=== PATIENT | female | born 1965 | race Caucasian/White ===

== ENCOUNTER 2018-04-11 19:39 | Emergency (ER) | payer MEDICAID ==
[~2018-04-11] VITALS: Ht 170.2 cm; Wt 99.2 kg
[~2018-04-11 19:39] MED LIST: ONDA8TAB9 PO; PANT-47 PO; POLY119P2 PO
[2018-04-11] MEDS ORDERED: LORazepam 1 MG tablet PO ONE (20:50)
[2018-04-11] MEDS ORDERED: albuterol 2.5 MG/3 ML nebule NEB ONE (20:50)
[2018-04-11] MEDS ORDERED: aspirin 325mg tablet PO ONE (20:50)
[2018-04-11] MEDS ORDERED: diphenhydrAMINE 25mg capsule PO ONE (21:40)
[2018-04-11] MEDS ORDERED: predniSONE 20 mg tablet PO ONE (21:40)
[2018-04-11] MEDS ORDERED: PRED20TA PO (21:41)
[2018-04-11 22:00] VITALS: BP 111/65
== END 2018-04-11 22:01 | disposition home or self-care (01) ==
LOC: ER 19:40
DX: J40 Bronchitis, not specified as acute or chronic (principal); E89.0 Postprocedural hypothyroidism; F17.200 Nicotine dependence, unspecified, uncomplicated; Z79.899 Other long term (current) drug therapy; Z90.710 Acquired absence of both cervix and uterus; Z98.51 Tubal ligation status; Z90.89 Acquired absence of other organs
CPT/HCPCS: 71045; 93005; 94640; 94760; 99284; J7512; Q0163

== ENCOUNTER 2019-08-25 23:58 | Emergency (ER) | payer MEDICAID ==
[~2019-08-25] VITALS: Ht 170.2 cm; Wt 113.2 kg
[2019-08-26] MEDS ORDERED: ibuprofen tablet 400 MG TABLET PO STA (00:04)
[2019-08-26] MEDS ORDERED: ketorolac tromethamine 15mg/ml inj. IM ONE (02:45)
[2019-08-26] MEDS ORDERED: dexamethasone 4mg tablet PO ONE (02:45)
[2019-08-26] MEDS ORDERED: diazepam 5mg tablet PO ONE (02:55)
[2019-08-26] MEDS ORDERED: METH-360 PO (03:08)
[2019-08-26] MEDS ORDERED: DIAZ-351 PO (03:08)
[2019-08-26] MEDS ORDERED: PRED20TA PO (03:08)
--- NOTE | 2019-08-26 04:01 | NUR ---
PATIENT IN BED EYES CLOSED RR EVEN UN LABORED NO OBSERVABLE S/S OF ACUTE STRESS AT THIS TIME WILL CONTINUE TO MONITOR
--- NOTE | 2019-08-26 06:16 | NUR ---
SBAR TO AMBER FAYE NO QUESTIONS OR CONCERNS AFTER ASSUMING CARE
[2019-08-26 07:12] VITALS: BP 149/97
== END 2019-08-26 10:00 | disposition home or self-care (01) ==
LOC: ER 23:58
DX: M54.42 Lumbago with sciatica, left side (principal); M54.41 Lumbago with sciatica, right side; F41.9 Anxiety disorder, unspecified; F32.9 Major depressive disorder, single episode, unspecified; Z90.710 Acquired absence of both cervix and uterus; Z98.51 Tubal ligation status; Z98.890 Other specified postprocedural states; Z72.89 Other problems related to lifestyle; Z79.899 Other long term (current) drug therapy
CPT/HCPCS: 72148; 96372; 99285; J1885

== ENCOUNTER 2019-12-08 09:37 | Emergency (ER) | payer MEDICAID ==
[~2019-12-08] VITALS: Ht 167.6 cm; Wt 113.6 kg
[~2019-12-08 09:37] MED LIST changes: +DIAZ-351 PO; +METH-360 PO
[2019-12-08] MEDS ORDERED: methylPREDNISolone sod succ 125mg/2ml vial IV ONE (10:05)
[2019-12-08] MEDS ORDERED: ipratropium/albuterol 3ml nebule NEB ONE (10:05)
[2019-12-08] MEDS ORDERED: normal saline 1000ML IV soln IVB ONE (10:05)
[2019-12-08] MEDS ORDERED: LORazepam 2 mg/ml vial IV ONE (10:05)
[2019-12-08 10:46] LABS: BASOPHILS # (AUTO) 0.1 X10'3 (0-0.2); BASOPHILS % (AUTO) 0.9 % (0-1); EOSINOPHILS # (AUTO) 0.2 X10'3 (0-0.9); EOSINOPHILS % (AUTO) 2.4 % (0-6); HEMATOCRIT 43.5 % (35.0-45.0); HEMOGLOBIN 14.7 g/dl (12.0-16.0); LYMPHOCYTES % (AUTO) 38.1 % (21-51); MEAN CORPUSCULAR HEMOGLOBIN 30.6 PG (27.0-31.0); MEAN CORPUSCULAR HGB CONC 33.9 g/dL (33.0-36.5); MEAN CORPUSCULAR VOLUME 90.5 FL (78-98); MEAN PLATELET VOLUME 9.5 FL (7.4-10.4); MONOCYTES # (AUTO) 0.7 X10'3 (0-0.9); MONOCYTES % (AUTO) 8.6 % (2-12); PLATELET COUNT 270 X10'3 (140-440); RED BLOOD COUNT 4.81 X10'6 (4.20-5.60); RED CELL DISTRIBUTION WIDTH 13.8 % (11.5-14.5); WHITE BLOOD COUNT 7.9 X10'3 (4.5-11.0)
[2019-12-08 11:19] LABS: ALANINE AMINOTRANSFERASE 30 U/L (12-78); ALBUMIN 3.4 G/DL (3.4-5.0); ALBUMIN/GLOBULIN RATIO 0.9 (1.1-1.5); ALKALINE PHOSPHATASE 137 IU/L (46-116); ANION GAP 12 (8-16); ASPARTATE AMINO TRANSFERASE 22 U/L (10-37); BILIRUBIN,TOTAL 0.5 MG/DL (0.1-1.0); BLOOD UREA NITROGEN 8 MG/DL (7-18); BUN/CREATININE RATIO 9.1 (6.6-38.0); CALCIUM 8.9 MG/DL (8.5-10.1); CHLORIDE 107 MMOL/L (99-107); CREATININE 0.88 MG/DL (0.40-0.90); GLUCOSE 96 MG/DL (70-104); POTASSIUM 4.3 MMOL/L (3.5-5.1); SODIUM 144 MMOL/L (135-145); TOTAL CARBON DIOXIDE 24.7 MMOL/L (24-32); TOTAL PROTEIN 7.1 G/DL (6.4-8.2); eGFR 67 ML/MIN
[2019-12-08 12:06] VITALS: BP 135/98
== END 2019-12-08 12:18 | disposition home or self-care (01) ==
LOC: ER 09:38
DX: F41.0 Panic disorder [episodic paroxysmal anxiety] (principal); J44.9 Chronic obstructive pulmonary disease, unspecified; F32.9 Major depressive disorder, single episode, unspecified; Z90.710 Acquired absence of both cervix and uterus; Z98.51 Tubal ligation status; Z98.890 Other specified postprocedural states; Z79.899 Other long term (current) drug therapy
CPT/HCPCS: 36415; 71045; 80053; 84484; 85025; 93005; 94640; 96374; 96375; 99285; J2060; J2930; J7030; 94760

== ENCOUNTER 2020-02-03 14:42 | Emergency (ER) | payer MEDICAID ==
[~2020-02-03] VITALS: Ht 167.6 cm; Wt 111.8 kg
[2020-02-03 16:28] LABS: BASOPHILS # (AUTO) 0.1 X10'3 (0-0.2); EOSINOPHILS # (AUTO) 0.3 X10'3 (0-0.9); HEMOGLOBIN 15.3 g/dl (12.0-16.0); LYMPHOCYTES # (AUTO) 2.8 X10'3 (1.1-4.8); MEAN PLATELET VOLUME 9.4 FL (7.4-10.4); MONOCYTES # (AUTO) 0.6 X10'3 (0-0.9); MONOCYTES % (AUTO) 7.7 % (2-12); NEUTROPHILS # (AUTO) 3.8 X10'3 (1.8-7.7); WHITE BLOOD COUNT 7.5 X10'3 (4.5-11.0)
[2020-02-03 16:30] LABS: BASOPHILS % (AUTO) 1.3 % (0-1); EOSINOPHILS % (AUTO) 3.8 % (0-6); HEMATOCRIT 45.5 % (35.0-45.0); MEAN CORPUSCULAR HEMOGLOBIN 30.8 PG (27.0-31.0); MEAN CORPUSCULAR HGB CONC 33.7 g/dL (33.0-36.5); MEAN CORPUSCULAR VOLUME 91.5 FL (78-98); NEUTROPHILS % (AUTO) 50.2 % (42-75); PLATELET COUNT 287 X10'3 (140-440); RED BLOOD COUNT 4.98 X10'6 (4.20-5.60); RED CELL DISTRIBUTION WIDTH 13.8 % (11.5-14.5)
[2020-02-03 16:43] LABS: ALANINE AMINOTRANSFERASE 35 U/L (12-78); ALBUMIN 3.7 G/DL (3.4-5.0); ALBUMIN/GLOBULIN RATIO 0.9 (1.1-1.5); ALKALINE PHOSPHATASE 144 IU/L (46-116); ANION GAP 9 (8-16); ASPARTATE AMINO TRANSFERASE 20 U/L (10-37); BILIRUBIN,TOTAL 0.4 MG/DL (0.1-1.0); BLOOD UREA NITROGEN 10 MG/DL (7-18); BUN/CREATININE RATIO 10.1 (6.6-38.0); CALCIUM 9.1 MG/DL (8.5-10.1); CHLORIDE 105 MMOL/L (99-107); CREATININE 0.99 MG/DL (0.40-0.90); GLUCOSE 116 MG/DL (70-104); POTASSIUM 3.9 MMOL/L (3.5-5.1); SODIUM 141 MMOL/L (135-145); TOTAL CARBON DIOXIDE 27.5 MMOL/L (24-32); TOTAL PROTEIN 7.6 G/DL (6.4-8.2); eGFR 59 ML/MIN
[2020-02-03 17:44] VITALS: BP 109/77
== END 2020-02-03 17:30 | disposition home or self-care (01) ==
LOC: ER 14:42
DX: I10 Essential (primary) hypertension (principal); R06.02 Shortness of breath; R05 Cough; R07.89 Other chest pain; R11.0 Nausea; F41.9 Anxiety disorder, unspecified; F32.9 Major depressive disorder, single episode, unspecified; Z90.710 Acquired absence of both cervix and uterus; Z98.51 Tubal ligation status; Z98.890 Other specified postprocedural states; Z72.89 Other problems related to lifestyle; Z79.899 Other long term (current) drug therapy
CPT/HCPCS: 36415; 71045; 80053; 84484; 85025; 93005; 99285

== ENCOUNTER 2020-07-06 18:00 | Emergency (ER) | payer MEDICAID ==
[~2020-07-06] VITALS: Ht 167.6 cm; Wt 113.6 kg
--- NOTE | 2020-07-06 20:54 | NUR ---
Her pitbull was attacking her 16 y/o dog and she picked him up and pulled him away and then sat on him 2 days ago and has had an increase in pain to her left lumbar/buttock area to where she can barely move, sit, stand. Has gone to a chiropractor, but pain continues.
[2020-07-06] MEDS ORDERED: dexamethasone sod phosphate 10mg/ml inj IV STA (21:08)
[2020-07-06] MEDS ORDERED: acetaminophen 325mg tablet PO ONE (21:20)
[2020-07-06] MEDS ORDERED: morphine 4 MG/ML inj SYRINge IV ONE (21:20)
[2020-07-06] MEDS ORDERED: LIDOcaine 5% patch TP ONE (21:20)
[2020-07-06] MEDS ORDERED: ketorolac trometh. 30mg/ml inj. IV ONE (21:20)
[2020-07-06] MEDS ORDERED: orphenadrine citrate 60mg/2ml inj. IM ONE (21:20)
[2020-07-06] MEDS ORDERED: gabapentin 400mg capsule PO ONE (21:45)
[2020-07-06] MEDS ORDERED: LORazepam 2 mg/ml vial IV ONE (21:45)
[2020-07-07] MEDS ORDERED: diazepam inj 5 MG/ML inj. IV ONE
[2020-07-07] MEDS ORDERED: METH-360 PO (00:01)
[2020-07-07 00:40] VITALS: BP 119/79
== END 2020-07-07 00:41 | disposition home or self-care (01) ==
LOC: ER 18:00
DX: S39.012A Strain of muscle, fascia and tendon of lower back, initial encounter (principal); R53.1 Weakness; M54.2 Cervicalgia; R20.0 Anesthesia of skin; I10 Essential (primary) hypertension; G89.29 Other chronic pain; F41.9 Anxiety disorder, unspecified; F32.9 Major depressive disorder, single episode, unspecified; Z90.710 Acquired absence of both cervix and uterus; Z98.51 Tubal ligation status; Z98.890 Other specified postprocedural states; Z72.89 Other problems related to lifestyle; Z79.899 Other long term (current) drug therapy; X58.XXXA Exposure to other specified factors, initial encounter; Y93.89 Activity, other specified; Y92.89 Other specified places as the place of occurrence of the external cause; Y99.8 Other external cause status
CPT/HCPCS: 96372; 96374; 96375; 99284; J1100; J1885; J2060; J2270; J2360; J3360

== ENCOUNTER 2021-04-05 07:45 | Emergency (ER) | payer MEDICAID ==
[~2021-04-05] VITALS: Ht 167.6 cm; Wt 117.0 kg
[2021-04-05] MEDS ORDERED: ondansetron/PF 4mg/2ml inj IV ONE (08:10)
[2021-04-05] MEDS ORDERED: morphine 4 MG/ML inj SYRINge IV ONE (08:10)
[2021-04-05] MEDS ORDERED: aspirin 325mg tablet PO ONE (08:10)
[2021-04-05 08:18] LABS: BASOPHILS # (AUTO) 0.1 X10'3 (0-0.2); BASOPHILS % (AUTO) 1.4 % (0-1); EOSINOPHILS # (AUTO) 0.3 X10'3 (0-0.9); EOSINOPHILS % (AUTO) 2.8 % (0-6); HEMATOCRIT 47.3 % (35.0-45.0); HEMOGLOBIN 16.5 g/dl (12.0-16.0); LYMPHOCYTES # (AUTO) 3.7 X10'3 (1.1-4.8); LYMPHOCYTES % (AUTO) 40.6 % (21-51); MEAN CORPUSCULAR HEMOGLOBIN 31.3 PG (27.0-31.0); MEAN CORPUSCULAR HGB CONC 34.8 g/dL (33.0-36.5); MEAN CORPUSCULAR VOLUME 89.9 FL (78-98); MEAN PLATELET VOLUME 9.5 FL (7.4-10.4); MONOCYTES # (AUTO) 0.8 X10'3 (0-0.9); MONOCYTES % (AUTO) 8.3 % (2-12); NEUTROPHILS # (AUTO) 4.3 X10'3 (1.8-7.7); NEUTROPHILS % (AUTO) 46.9 % (42-75); PLATELET COUNT 319 X10'3 (140-440); RED BLOOD COUNT 5.27 X10'6 (4.20-5.60); RED CELL DISTRIBUTION WIDTH 13.9 % (11.5-14.5); WHITE BLOOD COUNT 9.2 X10'3 (4.5-11.0)
[2021-04-05 08:33] LABS: ALANINE AMINOTRANSFERASE 60 U/L (12-78); ALBUMIN 3.8 G/DL (3.4-5.0); ALBUMIN/GLOBULIN RATIO 0.9 (1.1-1.5); ALKALINE PHOSPHATASE 185 IU/L (46-116); ANION GAP 11 (8-16); ASPARTATE AMINO TRANSFERASE 30 U/L (10-37); BILIRUBIN,TOTAL 0.5 MG/DL (0.1-1.0); BLOOD UREA NITROGEN 10 MG/DL (7-18); BUN/CREATININE RATIO 11.8 (6.6-38.0); CALCIUM 9.5 MG/DL (8.5-10.1); CHLORIDE 105 MMOL/L (99-107); CREATININE 0.85 MG/DL (0.40-0.90); GLUCOSE 101 MG/DL (70-104); POTASSIUM 4.2 MMOL/L (3.5-5.1); SODIUM 142 MMOL/L (135-145); TOTAL CARBON DIOXIDE 25.9 MMOL/L (24-32); eGFR 70 ML/MIN
[2021-04-05 08:49] LABS: LIPASE 114 U/L (73-393)
[2021-04-05] MEDS ORDERED: nitroGLYCERIN 0.4mg SUBLingual tab SL PRN (09:35)
[2021-04-05] MEDS ORDERED: iohexol 350MG/ML 100ml bottle IV ONE (10:19)
[2021-04-05 13:42] VITALS: BP 130/102
== END 2021-04-05 13:39 | disposition home or self-care (01) ==
LOC: ER 07:45
DX: R07.89 Other chest pain (principal); G89.29 Other chronic pain; F41.9 Anxiety disorder, unspecified; I10 Essential (primary) hypertension; F32.9 Major depressive disorder, single episode, unspecified; Z90.710 Acquired absence of both cervix and uterus; Z98.51 Tubal ligation status; Z98.890 Other specified postprocedural states; Z72.89 Other problems related to lifestyle; Z79.899 Other long term (current) drug therapy
CPT/HCPCS: 36415; 71045; 71275; 80053; 83690; 83880; 84484; 85025; 85379; 93005; 96374; 96375; 99285; J2270; J2405; Q9967

== ENCOUNTER 2021-04-09 09:46 | Day surgery (SDC) | payer MEDICAID ==
[2021-04-09] VITALS (10 sets, daily range): BP systolic 142–157; BP diastolic 89–103
[~2021-04-09] VITALS: Ht 167.6 cm; Wt 116.3 kg
[2021-04-09] MEDS ORDERED: DIAZ-351 PO (10:08)
[2021-04-09] MEDS ORDERED: DIAZ5TAB PO (10:09)
[2021-04-09] MEDS ORDERED: ALB0.5UD IH (10:12)
[2021-04-09] MEDS ORDERED: FLUT1DIS15 INH (10:12)
[2021-04-09] MEDS ORDERED: diphenhydrAMINE 25mg capsule PO PRN (10:15)
[2021-04-09] MEDS ORDERED: PANT20TA18 PO (10:15)
[2021-04-09] MEDS ORDERED: UMEC1DIS (10:15)
[2021-04-09] MEDS ORDERED: PRAZ2CAP2 PO (10:15)
[2021-04-09] MEDS ORDERED: DULO60CA60 PO (10:15)
[2021-04-09] MEDS ORDERED: normal saline 1,000 ML IV SCH (10:15)
[2021-04-09] MEDS ORDERED: LIDOcaine/PRILOcaine 5gm cream TP ONE (10:35)
[2021-04-09 11:03] LABS: BASOPHILS # (AUTO) 0.1 X10'3 (0-0.2); BASOPHILS % (AUTO) 1.2 % (0-1); EOSINOPHILS # (AUTO) 0.2 X10'3 (0-0.9); EOSINOPHILS % (AUTO) 2.8 % (0-6); HEMOGLOBIN 15.5 g/dl (12.0-16.0); LYMPHOCYTES # (AUTO) 2.7 X10'3 (1.1-4.8); LYMPHOCYTES % (AUTO) 31.8 % (21-51); MEAN CORPUSCULAR HEMOGLOBIN 30.9 PG (27.0-31.0); MEAN CORPUSCULAR HGB CONC 34.5 g/dL (33.0-36.5); MEAN CORPUSCULAR VOLUME 89.6 FL (78-98); MEAN PLATELET VOLUME 9.6 FL (7.4-10.4); MONOCYTES # (AUTO) 0.7 X10'3 (0-0.9); NEUTROPHILS # (AUTO) 4.6 X10'3 (1.8-7.7); NEUTROPHILS % (AUTO) 55.2 % (42-75); PLATELET COUNT 284 X10'3 (140-440); RED BLOOD COUNT 5.02 X10'6 (4.20-5.60); RED CELL DISTRIBUTION WIDTH 13.9 % (11.5-14.5); WHITE BLOOD COUNT 8.3 X10'3 (4.5-11.0)
[2021-04-09] MEDS ORDERED: nitroGLYCERIN-Tridil 50MG/D5W 250 ML IV ONE (11:18)
[2021-04-09] MEDS ORDERED: verapamil 2.5 mg/ml inj IV ONE (11:19)
[2021-04-09] MEDS ORDERED: iohexol 350 MG/ML 50ML vial IV ONE (11:19)
[2021-04-09] MEDS ORDERED: LIDOcaine 1% (10mg/ml)w/preservative injection 20ml MDV ONE (11:19)
[2021-04-09] MEDS ORDERED: midazolam 1 mg/ML 2ml injection ONE ×5 (11:19→12:25)
[2021-04-09] MEDS ORDERED: iohexol 350MG/ML 100ml bottle IV ONE ×2 (11:19→12:25)
[2021-04-09] MEDS ORDERED: heparin 1,000unit/ml 10ml vial 10 ML ONE (11:19)
[2021-04-09] MEDS ORDERED: fentaNYL/PF 50MCG/1 ML 2ML syringe ONE (11:19)
[2021-04-09 11:25] LABS: ALBUMIN 3.4 G/DL (3.4-5.0); ANION GAP 8 (8-16); BLOOD UREA NITROGEN 11 MG/DL (7-18); BUN/CREATININE RATIO 12.8 (6.6-38.0); CALCIUM 9.3 MG/DL (8.5-10.1); CHLORIDE 108 MMOL/L (99-107); CREATININE 0.86 MG/DL (0.40-0.90); GLUCOSE 98 MG/DL (70-104); MAGNESIUM 2.1 MG/DL (1.5-2.4); POTASSIUM 4.4 MMOL/L (3.5-5.1); SODIUM 142 MMOL/L (135-145); TOTAL CARBON DIOXIDE 26.1 MMOL/L (24-32); eGFR 69 ML/MIN
[2021-04-09] MEDS ORDERED: proCHLORperazine 10 MG/2 ml inj ONE (12:13)
[2021-04-09] MEDS ORDERED: FLU VACC QS2021-22(6MOS UP)/PF 60 MCG/0.5 ML SYRINGE IM ONE (12:50)
[2021-04-09] MEDS ORDERED: acetaminophen 325mg tablet PO PRN (14:00)
[2021-04-09] MEDS ORDERED: HYDROcodone/acetaminophen 5mg/325mg tablet PO PRN (14:00)
[2021-04-09] MEDS ORDERED: HYDROcodone/acetaminophen 10/325mg tab PO PRN (14:00)
[2021-04-09] MEDS ORDERED: proCHLORperazine 10 MG/2 ml inj IV PRN (14:00)
[2021-04-09] MEDS ORDERED: ondansetron/PF 4mg/2ml inj IV PRN (14:00)
== END 2021-04-09 17:14 | disposition home or self-care (01) ==
LOC: SSTAY O 09:46
PROVIDERS: ATTEND Internal Medicine Cardiovascular Disease
DX: R07.89 Other chest pain (principal); I25.10 Atherosclerotic heart disease of native coronary artery without angina pectoris; Z79.899 Other long term (current) drug therapy; Z98.890 Other specified postprocedural states
CPT/HCPCS: 36415; 80048; 83735; 85025; 85610; 93005; 93458; 93571; 99152; 99153; C1751; C1769; C1894; J0780; J1644; J2001; J2250; J3010; J7030; Q0163; Q9967; A4620; A5120; A6258; J3490

== ENCOUNTER 2021-10-05 16:53 | Emergency (ER) | payer MEDICAID ==
[~2021-10-05] VITALS: Ht 167.6 cm; Wt 116.6 kg
[~2021-10-05 16:53] MED LIST changes: +ALB0.5UD IH; -DIAZ-351 PO; +DIAZ5TAB PO; +DULO60CA60 PO; +FLUT1DIS15 INH; -METH-360 PO; -ONDA8TAB9 PO; -PANT-47 PO; +PANT20TA18 PO; -POLY119P2 PO; +PRAZ2CAP2 PO; +UMEC1DIS
[2021-10-05 17:22] LABS: BASOPHILS # (AUTO) 0.1 X10'3 (0-0.2); BASOPHILS % (AUTO) 1.3 % (0-1); EOSINOPHILS # (AUTO) 0.2 X10'3 (0-0.9); EOSINOPHILS % (AUTO) 1.9 % (0-6); HEMATOCRIT 43.4 % (35.0-45.0); HEMOGLOBIN 14.7 g/dl (12.0-16.0); LYMPHOCYTES # (AUTO) 3.4 X10'3 (1.1-4.8); LYMPHOCYTES % (AUTO) 35.5 % (21-51); MEAN CORPUSCULAR HGB CONC 33.8 g/dL (33.0-36.5); MEAN CORPUSCULAR VOLUME 88.8 FL (78-98); MEAN PLATELET VOLUME 9.4 FL (7.4-10.4); MONOCYTES # (AUTO) 0.8 X10'3 (0-0.9); MONOCYTES % (AUTO) 8.1 % (2-12); NEUTROPHILS % (AUTO) 53.2 % (42-75); PLATELET COUNT 320 X10'3 (140-440); RED BLOOD COUNT 4.88 X10'6 (4.20-5.60); RED CELL DISTRIBUTION WIDTH 13.9 % (11.5-14.5); WHITE BLOOD COUNT 9.5 X10'3 (4.5-11.0)
[2021-10-05 17:23] LABS: CLARITY,URINE SLIGHTLY CLOUDY (Clear); COLOR,URINE YELLOW (Yellow); GLUCOSE, URINE NEGATIVE (Neg); KETONES,URINE NEGATIVE (Neg); LEUKOCYTE ESTERASE ,URINE NEGATIVE (Neg); NITRITES, URINE POSITIVE (Neg); OCCULT BLOOD,URINE NEGATIVE (Neg); PROTEIN,URINE NEGATIVE (Neg)
[2021-10-05 17:25] LABS: UA COLLECTION TYPE CLN CATCH MIDSTREAM; URINE HCG NEGATIVE (NEG)
[2021-10-05 17:29] LABS: BACTERIA,URINE 3+ /HPF (Neg); MUCUS STRANDS MODERATE /LPF (Neg); RBC,URINE 0-2 /HPF (0-2); SQUAMOUS EPITHELIAL CELL,UR MANY /LPF (FEW); WBC,URINE 30-50 /HPF (0-4)
[2021-10-05 17:30] LABS: YEAST FEW /HPF (NEGATIVE)
--- NOTE | 2021-10-05 17:32 | NUR ---
UA REJECTED FOR CULTURE.
[2021-10-05 17:37] LABS: ALANINE AMINOTRANSFERASE 42 U/L (12-78); ALBUMIN 3.5 G/DL (3.4-5.0); ALBUMIN/GLOBULIN RATIO 0.9 (1.1-1.5); ALKALINE PHOSPHATASE 150 IU/L (46-116); ANION GAP 8 (8-16); ASPARTATE AMINO TRANSFERASE 24 U/L (10-37); BILIRUBIN,TOTAL 0.6 MG/DL (0.1-1.0); BLOOD UREA NITROGEN 12 MG/DL (7-18); BUN/CREATININE RATIO 12.8 (6.6-38.0); CHLORIDE 109 MMOL/L (99-107); CREATININE 0.94 MG/DL (0.40-0.90); GLUCOSE 101 MG/DL (70-104); LIPASE 112 U/L (73-393); POTASSIUM 4.1 MMOL/L (3.5-5.1); SODIUM 146 MMOL/L (135-145); TOTAL CARBON DIOXIDE 28.7 MMOL/L (24-32); TOTAL PROTEIN 7.3 G/DL (6.4-8.2); eGFR 62 ML/MIN
[2021-10-05 18:15] VITALS: BP 142/94
[2021-10-05 18:24] LABS: COLOR,URINE YELLOW (Yellow); GLUCOSE, URINE NEGATIVE (Neg); KETONES,URINE NEGATIVE (Neg); LEUKOCYTE ESTERASE ,URINE NEGATIVE (Neg); OCCULT BLOOD,URINE NEGATIVE (Neg); PROTEIN,URINE NEGATIVE (Neg); UROBILINOGEN,URINE 0.2 E.U/dL (0.2-1.0)
[2021-10-05 18:32] LABS: UA COLLECTION TYPE OTHER
[2021-10-05 18:33] LABS: BACTERIA,URINE NONE SEEN /HPF (Neg); CLARITY,URINE SLIGHTLY CLOUDY (Clear); NITRITES, URINE NEGATIVE (Neg); RBC,URINE 0-2 /HPF (0-2); SQUAMOUS EPITHELIAL CELL,UR MODERATE /LPF (FEW); WBC,URINE 20-30 /HPF (0-4)
== END 2021-10-05 19:11 | disposition home or self-care (01) ==
LOC: ER 16:53
DX: K59.00 Constipation, unspecified (principal); R10.84 Generalized abdominal pain; I10 Essential (primary) hypertension; G89.29 Other chronic pain; F41.9 Anxiety disorder, unspecified; F32.A Depression, unspecified; F17.200 Nicotine dependence, unspecified, uncomplicated; Z90.710 Acquired absence of both cervix and uterus; Z98.51 Tubal ligation status; Z72.89 Other problems related to lifestyle; Z79.899 Other long term (current) drug therapy
CPT/HCPCS: 36415; 74176; 80053; 81001; 81025; 83690; 85025; 87088; 99284

== ENCOUNTER 2022-06-21 14:41 | Emergency (ER) | payer MEDICAID ==
[~2022-06-21] VITALS: Ht 165.1 cm; Wt 115.0 kg
[2022-06-21 14:58] VITALS: BP 177/95
[2022-06-21 15:02] LABS: BASOPHILS # (AUTO) 0.1 X10'3 (0-0.2); BASOPHILS % (AUTO) 1.4 % (0-1); EOSINOPHILS # (AUTO) 0.2 X10'3 (0-0.9); EOSINOPHILS % (AUTO) 2.3 % (0-6); HEMOGLOBIN 14.4 g/dl (12.0-16.0); LYMPHOCYTES # (AUTO) 3.2 X10'3 (1.1-4.8); LYMPHOCYTES % (AUTO) 33.1 % (21-51); MEAN CORPUSCULAR HEMOGLOBIN 30.7 PG (27.0-31.0); MEAN CORPUSCULAR HGB CONC 33.6 g/dL (33.0-36.5); MEAN CORPUSCULAR VOLUME 91.4 FL (78-98); MEAN PLATELET VOLUME 9.2 FL (7.4-10.4); MONOCYTES # (AUTO) 0.7 X10'3 (0-0.9); MONOCYTES % (AUTO) 7.4 % (2-12); NEUTROPHILS # (AUTO) 5.3 X10'3 (1.8-7.7); NEUTROPHILS % (AUTO) 55.8 % (42-75); PLATELET COUNT 270 X10'3 (140-440); RED CELL DISTRIBUTION WIDTH 14.5 % (11.5-14.5); WHITE BLOOD COUNT 9.5 X10'3 (4.5-11.0)
[2022-06-21 15:25] LABS: ALANINE AMINOTRANSFERASE 43 U/L (12-78); ALBUMIN 3.3 G/DL (3.4-5.0); ALBUMIN/GLOBULIN RATIO 0.9 (1.1-1.5); ALKALINE PHOSPHATASE 162 IU/L (46-116); ANION GAP 10 (8-16); ASPARTATE AMINO TRANSFERASE 27 U/L (10-37); BILIRUBIN,TOTAL 0.4 MG/DL (0.1-1.0); BLOOD UREA NITROGEN 13 MG/DL (7-18); BUN/CREATININE RATIO 14.6 (6.6-38.0); CALCIUM 9.1 MG/DL (8.5-10.1); CHLORIDE 105 MMOL/L (99-107); CREATININE 0.89 MG/DL (0.40-0.90); GLUCOSE 119 MG/DL (70-104); MAGNESIUM 1.7 MG/DL (1.5-2.4); POTASSIUM 3.8 MMOL/L (3.5-5.1); SODIUM 141 MMOL/L (135-145); TOTAL CARBON DIOXIDE 26.4 MMOL/L (24-32); eGFR 66 ML/MIN
== END 2022-06-21 21:22 | disposition left against medical advice (07) ==
LOC: ER 14:42
DX: R07.9 Chest pain, unspecified (principal); Z53.21 Procedure and treatment not carried out due to patient leaving prior to being seen by health care provider
CPT/HCPCS: 36415; 71045; 80053; 83735; 83880; 84484; 85025; 93005

== ENCOUNTER 2022-12-09 00:32 | Emergency (ER) | payer MEDICAID ==
[~2022-12-09] VITALS: Ht 167.6 cm; Wt 114.5 kg
[2022-12-09] MEDS ORDERED: HYDROcodone/acetaminophen 10/325mg tab PO ONE (04:30)
[2022-12-09 04:36] LABS: CLARITY,URINE CLOUDY (Clear); GLUCOSE, URINE NEGATIVE (Neg); KETONES,URINE TRACE mg/dl (Neg); LEUKOCYTE ESTERASE ,URINE SMALL (Neg); NITRITES, URINE POSITIVE (Neg); OCCULT BLOOD,URINE NEGATIVE (Neg); PROTEIN,URINE TRACE mg/dl (Neg)
[2022-12-09 04:38] LABS: COLOR,URINE DARK YELLOW (Yellow); UA COLLECTION TYPE CLN CATCH MIDSTREAM
[2022-12-09] MEDS ORDERED: ketorolac trometh. 30mg/ml inj. IV ONE (04:40)
[2022-12-09 04:44] LABS: BACTERIA,URINE 4+ /HPF (Neg); MUCUS STRANDS MANY /LPF (Neg); RBC,URINE 0-2 /HPF (0-2); SQUAMOUS EPITHELIAL CELL,UR MODERATE /LPF (FEW); WBC,URINE 30-50 /HPF (0-4)
[2022-12-09] MEDS ORDERED: ondansetron 4mg rapidly disintigrating tab PO ONE (04:45)
[2022-12-09] MEDS ORDERED: ketorolac trometh. 30mg/ml inj. IM STA (04:45)
[2022-12-09 04:59] LABS: BASOPHILS # (AUTO) 0.2 X10'3 (0-0.2); BASOPHILS % (AUTO) 1.2 % (0-1); EOSINOPHILS # (AUTO) 0.2 X10'3 (0-0.9); EOSINOPHILS % (AUTO) 1.4 % (0-6); HEMATOCRIT 46.1 % (35.0-45.0); HEMOGLOBIN 15.5 g/dl (12.0-16.0); LYMPHOCYTES # (AUTO) 3.4 X10'3 (1.1-4.8); LYMPHOCYTES % (AUTO) 24.7 % (21-51); MEAN CORPUSCULAR HEMOGLOBIN 29.9 PG (27.0-31.0); MEAN CORPUSCULAR HGB CONC 33.6 g/dL (33.0-36.5); MEAN PLATELET VOLUME 9.4 FL (7.4-10.4); MONOCYTES # (AUTO) 1.1 X10'3 (0-0.9); MONOCYTES % (AUTO) 7.8 % (2-12); NEUTROPHILS # (AUTO) 8.9 X10'3 (1.8-7.7); NEUTROPHILS % (AUTO) 64.9 % (42-75); PLATELET COUNT 267 X10'3 (140-440); RED BLOOD COUNT 5.18 X10'6 (4.20-5.60); RED CELL DISTRIBUTION WIDTH 14.6 % (11.5-14.5); WHITE BLOOD COUNT 13.7 X10'3 (4.5-11.0)
[2022-12-09 05:07] LABS: ALANINE AMINOTRANSFERASE 36 U/L (12-78); ALBUMIN 3.9 G/DL (3.4-5.0); ALBUMIN/GLOBULIN RATIO 1.1 (1.1-1.5); ALKALINE PHOSPHATASE 181 IU/L (46-116); ANION GAP 11 (8-16); ASPARTATE AMINO TRANSFERASE 15 U/L (10-37); BILIRUBIN,TOTAL 0.6 MG/DL (0.1-1.0); BLOOD UREA NITROGEN 15 MG/DL (7-18); BUN/CREATININE RATIO 15.5 (10.0-20.0); C-REACTIVE PROTEIN 1.16 MG/DL (0.0-0.5); CALCIUM 9.5 MG/DL (8.5-10.1); CHLORIDE 105 MMOL/L (99-107); CREATININE 0.97 MG/DL (0.40-0.90); GLUCOSE 117 MG/DL (70-104); POTASSIUM 3.8 MMOL/L (3.5-5.1); SODIUM 140 MMOL/L (135-145); TOTAL PROTEIN 7.5 G/DL (6.4-8.2); eGFR 60 ML/MIN
[2022-12-09] MEDS ORDERED: IBUP-1984 PO (05:33)
[2022-12-09 05:44] VITALS: BP 114/82
--- NOTE | 2022-12-11 12:10 | NUR ---
PT CALLED, INFORMED THAT HER LABS ON 12/09 SHOWED THAT SHE HAD A UTI AND THAT ABX WILL BE ORDERED FOR HER. PT REQUESTED THAT THE RX BE CALLED TO [facility]. ADVISED TO RETURN TO PMD OR ER SHOULD SHE CONTINUE TO HAVE SYMPTOMS AFTER FINISHING HER ABX. PT STATED UNDERSTANDING. KEFLEX 500MG; 1 PO BID x7 DAYS WAS CALLED INTO [facility] REQUESTED
== END 2022-12-09 05:45 | disposition home or self-care (01) ==
LOC: ER 00:33
DX: M71.21 Synovial cyst of popliteal space [Baker], right knee (principal); N39.0 Urinary tract infection, site not specified; I10 Essential (primary) hypertension; Z90.710 Acquired absence of both cervix and uterus; Z98.51 Tubal ligation status
CPT/HCPCS: 36415; 71045; 73564; 80053; 81001; 83605; 85025; 85651; 86140; 87040; 87077; 87088; 87186; 93971; 96372; 99285; J1885; A6449

== ENCOUNTER 2023-10-27 10:38 | Outpatient (CLI) | payer MEDICAID | END 2023-10-27 23:59 | disposition home or self-care (01) | LOC: RAD 10:38 | PROVIDERS: ATTEND Family Medicine | DX: E89.0 Postprocedural hypothyroidism (principal); E04.1 Nontoxic single thyroid nodule | CPT/HCPCS: 76536 ==